=== PATIENT | female | born 1995 | race Caucasian/White ===

== ENCOUNTER 2017-11-18 19:22 | Emergency (ER) | payer OTHER ==
[~2017-11-18] VITALS: Ht 152.4 cm; Wt 64.4 kg
== END 2017-11-18 21:56 | disposition home or self-care (01) ==
LOC: ER 19:22
DX: K59.09 Other constipation (principal); M54.2 Cervicalgia; R10.11 Right upper quadrant pain

== ENCOUNTER → 2017-11-24 | Emergency (ER) | payer OTHER ==
[~2017-11-24] VITALS: Ht 152.4 cm; Wt 67.6 kg
[~2017-11-24] MED LIST: KRISTALOSE20 GM PO; LEVSIN/SL0.125 MG PO; ZANTAC300 MG PO
== END | disposition left against medical advice (07) ==
LOC: ER 11:40
DX: Z53.20 Procedure and treatment not carried out because of patient's decision for unspecified reasons (principal)

== ENCOUNTER → 2017-11-26 | Emergency (ER) | payer OTHER ==
[~2017-11-26] VITALS: Ht 152.4 cm; Wt 67.6 kg
== END | disposition home or self-care (01) ==
LOC: ER 15:18
DX: K30 Functional dyspepsia (principal); R10.11 Right upper quadrant pain

== ENCOUNTER 2017-12-03 17:07 | Emergency (ER) | payer OTHER ==
[~2017-12-03] VITALS: Ht 152.4 cm; Wt 67.6 kg
== END 2017-12-03 18:33 | disposition home or self-care (01) ==
LOC: ER 17:07
DX: M79.18 Myalgia, other site (principal); M54.89 Other dorsalgia; R07.89 Other chest pain

== ENCOUNTER 2018-09-28 13:14 | Outpatient (CLI) | payer OTHER | END 2018-09-28 13:17 | disposition home or self-care (01) | LOC: SONOGRAMA 13:14 → MAMO-SONO 13:15 → SONOGRAMA 13:17 | DX: Z34.00 Encounter for supervision of normal first pregnancy, unspecified trimester (principal) ==

== ENCOUNTER 2019-02-16 10:19 | Inpatient (IN) | payer OTHER ==
[~2019-02-16] VITALS: Ht 152.4 cm; Wt 79.4 kg
[2019-03-02] MEDS ORDERED: PRENATABS RX T1 EACH PO (22:33)
== END 2019-03-05 11:32 | disposition home or self-care (01) | DRG 807 ==
LOC: LDR 03-02 22:09 → OB/GYN 03-03 11:44 → LDR 03-04 12:30 → OB/GYN 03-05 11:32
PROVIDERS: ADMIT Specialist
PROC: 10907ZC Drainage of Amniotic Fluid, Therapeutic from Products of Conception, Via Natural or Artificial Opening (ICD-10-PCS; 2019-03-02)
PROC: 3E033VJ Introduction of Other Hormone into Peripheral Vein, Percutaneous Approach (ICD-10-PCS; 2019-03-02)
PROC: 4A1HXCZ Monitoring of Products of Conception, Cardiac Rate, External Approach (ICD-10-PCS; 2019-03-02)
PROC: 10E0XZZ Delivery of Products of Conception, External Approach (ICD-10-PCS; principal; 2019-03-03)
PROC: 0W8NXZZ Division of Female Perineum, External Approach (ICD-10-PCS; 2019-03-03)
DX: O80 Encounter for full-term uncomplicated delivery (principal); Z37.0 Single live birth; Z3A.39 39 weeks gestation of pregnancy